=== PATIENT | female | born 1985 | race Caucasian/White ===

== ENCOUNTER 2025-03-27 16:32 | Emergency (ER) | payer OTHER ==
[2025-03-27 17:08] VITALS: BP 132/68; PULSE 77; RESP 18; TEMP 97.9; BMI 31.6
[2025-03-27] MEDS ORDERED: FAMOTIDINE 20 MG/50 ML IVPB 20 MG/50 ML MG IVPB ONE (17:18)
[2025-03-27] MEDS ORDERED: ACETAMINOPHEN INJECTION 100 ML ONE (17:18)
[2025-03-27] MEDS: ACETAMINOPHEN 1000 MG/100 ML BAG IVPB ONE (17:35)
[2025-03-27] MEDS: FAMOTIDINE 20 MG/50 ML IVPB 20 MG/50 ML MG IVPB ONE (17:35)
[2025-03-27 17:43] LABS: ABSOLUTE IMMATURE GRANULOCYTES 0.01 x10^3/uL (0.0-0.031); BASOPHILS # 0.05 x10^3/uL (0.01-0.08)
[2025-03-27 17:57] LABS: INR 1.01 (0.83-1.09); PROTHROMBIN TIME (PATIENT) 11.2 SEC (9.7-13.0)
[2025-03-27 18:00] LABS: ACTIVATED PTT 28.6 SECONDS (25.2-36.5); EOSINOPHIL % 1.0 % (0.7-5.8); EOSINOPHILS # 0.05 x10^3/uL (0.04-0.36); MCHC 32.0 g/dl (32.2-35.5); MEAN CELL VOLUME 89.2 fl (79.4-94.8); MEAN PLT VOLUME 9.8 fl (9.4-12.3); MONOCYTE # 0.51 x10^3/uL (0.24-0.86); MONOCYTE % 9.7 % (4.7-12.5); RDW 14.2 % (12.1-16.8)
[2025-03-27 18:04] LABS: ALK PHOS 75 U/L (45-117); CO2 25 mmol/L (21-32); CREATININE 0.9 mg/dl (0.6-1.3); GLUCOSE,RANDOM 91 mg/dl (74-106); SGOT/AST 44 U/L (15-37); SGPT/ALT 45 U/L (7-52); TOT PROT 7.2 g/dl (6.4-8.2)
[2025-03-27 18:06] LABS: HCG,QUALITATIVE URINE Negative
[2025-03-27 18:39] LABS: ERYTHROCYTE SEDIMENTATION RATE 19 mm/hr (0-20)
[2025-03-27 19:36] LABS: HCV DIAGNOSTIC IN-HOUSE W/RFLX NON-REACTIVE (NONREACTIVE)
[2025-03-27 19:37] LABS: HIV INTERPRETATION NEGATIVE (NEGATIVE)
== END 2025-03-27 21:08 | disposition home or self-care (01) ==
LOC: FER 16:32
PROC: 3E033GC Introduction of Other Therapeutic Substance into Peripheral Vein, Percutaneous Approach (ICD-10-PCS; principal; 2025-03-27)
PROC: 3E033NZ Introduction of Analgesics, Hypnotics, Sedatives into Peripheral Vein, Percutaneous Approach (ICD-10-PCS; 2025-03-27)
DX: K62.5 Hemorrhage of anus and rectum (principal); R10.13 Epigastric pain; R10.30 Lower abdominal pain, unspecified; R42 Dizziness and giddiness; R30.0 Dysuria; K64.4 Residual hemorrhoidal skin tags
CPT/HCPCS: 36415; 71046-TC-FY; 74174-TC; 80053; 81003; 81015; 83605; 83690; 83735; 84484; 84703; 85025; 85610; 85651; 85730; 86140; 86803; 86850; 86870; 86880; 86900; 86901; 86902; 87086; 87389; 93005; 99285-25